=== PATIENT | female | born 1950 | race African-American/Black ===

== ENCOUNTER 2016-08-30 18:16 | Emergency (ER) | payer MEDICARE ==
[~2016-08-30] VITALS: Ht 167.6 cm; Wt 95.0 kg
[~2016-08-30 18:16] MED LIST: ALLO100T; AMLO2.5T45 PO; HYDR12.518; WARF1TAB46
[2016-08-30 18:28] VITALS: BP 124/72
== END 2016-08-30 19:45 | disposition left against medical advice (07) ==
LOC: ER 18:16
DX: J45.909 Unspecified asthma, uncomplicated (principal); Z53.21 Procedure and treatment not carried out due to patient leaving prior to being seen by health care provider

== ENCOUNTER 2017-06-16 06:21 | Emergency (ER) | payer MEDICARE, OTHER ==
[~2017-06-16] VITALS: Ht 167.6 cm; Wt 94.0 kg
[2017-06-16] MEDS ORDERED: ALBUTEROL (0.083%) 2.5MG/3ML NEB HHN STA (06:55)
[2017-06-16] MEDS ORDERED: PREDNISONE 20MG TABLET PO STA (06:55)
[2017-06-16] MEDS ORDERED: IPRATROPIUM BROMIDE (0.02%) 0.5MG/2.5ML NEB HHN STA (06:55)
[2017-06-16 09:56] VITALS: BP 112/82
== END 2017-06-16 09:52 | disposition home or self-care (01) ==
LOC: ER 07:28
DX: J45.901 Unspecified asthma with (acute) exacerbation (principal); I10 Essential (primary) hypertension; Z79.01 Long term (current) use of anticoagulants
CPT/HCPCS: 71045; 94640; 99283; J7512; J7611

== ENCOUNTER 2017-07-08 06:25 | Inpatient (IN) | payer OTHER ==
[~2017-07-08] VITALS: Ht 167.6 cm; Wt 95.3 kg
[2017-07-08] MEDS ORDERED: ALBUTEROL (0.083%) 2.5MG/3ML NEB HHN STA ×2 (07:57→10:10)
[2017-07-08] MEDS ORDERED: IPRATROPIUM BROMIDE (0.02%) 0.5MG/2.5ML NEB HHN STA (07:57)
[2017-07-08] MEDS ORDERED: PREDNISONE 20MG TABLET PO STA (07:57)
[2017-07-08 08:40] LABS: BASOPHILS % 0.5 % (0.0-2.0); EOSINOPHILS % 9.7 % (0.0-5.0); HEMATOCRIT. 34.9 % (36.0-48.0); HEMOGLOBIN. 11.1 g/dL (12.0-16.0); LYMPHOCYTES % 42.2 % (20.0-50.0); MEAN CORPUSCULAR VOLUME 75.6 fL (81.0-99.0); MEAN PLATELET VOLUME 7.8 fl (7.4-10.4); MONOCYTES % 12.9 % (2.0-8.0); NEUTROPHILS % 34.7 % (40.0-76.0); PLATELET 130 x1000/uL (130-400); RED BLOOD CELL COUNT 4.61 mill/uL (4.2-5.4); RED CELL DISTRIBUTION WIDTH 16.1 % (11.6-14.6)
[2017-07-08] MEDS ORDERED: ALBUTEROL (0.5%) 2.5MG/0.5ML NEB HHN ONE (08:40)
[2017-07-08 08:43] LABS: CHLORIDE 106 mEq/L (98-107)
[2017-07-08 08:50] LABS: INR 3.7; PROTHROMBIN TIME 38.8 sec (9.4-11.6)
[2017-07-08 11:52] VITALS: BP 107/67
[2017-07-08 12:00] VITALS: BP 107/67
[2017-07-08] MEDS ORDERED: KDUR10 PO (12:03)
[2017-07-08] MEDS ORDERED: ALLO100T PO (12:03)
[2017-07-08] MEDS ORDERED: HYDR12.529 PO (12:03)
[2017-07-08] MEDS ORDERED: WARF7.5T48 PO (12:03)
[2017-07-08] MEDS ORDERED: AMLO2.5T45 PO (12:03)
[2017-07-08] MEDS ORDERED: ONDANSETRON HCL 4MG/2ML VIAL IV PRN (12:45)
[2017-07-08] MEDS ORDERED: TRAMADOL 50MG TABLET PO PRN (12:45)
[2017-07-08] MEDS ORDERED: MORPHINE SULFATE 4 MG/ML CPJ (NOT FOR IM USE) IV PRN (12:45)
[2017-07-08] MEDS ORDERED: NITROGLYCERIN 0.4MG TABLET SL SL PRN (12:45)
[2017-07-08] MEDS ORDERED: LORAZEPAM 0.5MG TABLET PO PRN (12:45)
[2017-07-08] MEDS ORDERED: DOCUSATE SODIUM 100MG CAPSULE PO PRN (12:45)
[2017-07-08] MEDS ORDERED: DIPHENHYDRAMINE 50MG/ML VIAL IV PRN (12:45)
[2017-07-08] MEDS ORDERED: ACETAMINOPHEN 325MG TABLET PO PRN (12:45)
[2017-07-08] MEDS ORDERED: GUAIFENESIN 200MG/10ML SUGAR FREE UDC PO PRN (12:45)
[2017-07-08] MEDS ORDERED: NA PHOS,M-B/NA PHOS,DI-BA ENEMA 118ML PR PRN (12:45)
[2017-07-08] MEDS ORDERED: MAGNESIUM/ALUMINUM HYDROXIDE/SIMETHICONE 30ML UDC PO PRN (12:45)
[2017-07-08] MEDS ORDERED: CLONIDINE 0.1MG TABLET PO PRN (12:45)
[2017-07-08] MEDS: AMLODIPINE 10MG TABLET PO SCH (13:00)
[2017-07-08] MEDS ORDERED: LEVOFLOXACIN 500MG PREMIX 100 ML IV SCH ×2 (14:00→21:00)
[2017-07-08] MEDS: METHYLPREDNISOLONE SOD SUCC 125 MG/2 ML VIAL IV SCH ×2 (15:14→22:30)
[2017-07-08 16:00] VITALS: BP 96/54
[2017-07-08 18:03] LABS: LDL CHOLESTEROL 113 mg/dL (5-100)
[2017-07-08 18:04] LABS: HDL CHOLESTEROL 70 mg/dL (40-59)
[2017-07-08 18:05] LABS: CREATINE KINASE 190 IU/L (26-192)
[2017-07-08 18:06] LABS: CREATINE KINASE MB FRACTION 2.2 ng/mL (0.5-3.6)
[2017-07-08 18:13] LABS: FOLIC ACID (FOLATE) SERUM 19.4 ng/mL (>5.38)
[2017-07-08] MEDS: FAMOTIDINE 20MG TABLET PO SCH (21:04)
[2017-07-08] MEDS: GUAIFENESIN 600MG ER TABLET PO SCH (21:04)
[2017-07-08] MEDS: IPRATROPIUM/ALBUTEROL 0.5-3(2.5)MG/3ML NEB INH PRN (21:41)
[2017-07-08] MEDS: ZOLPIDEM TARTRATE 5MG TABLET PO PRN (22:30)
[2017-07-09] VITALS: BP 120/80
[2017-07-09 00:23] LABS: CREATINE KINASE 174 IU/L (26-192)
[2017-07-09 00:28] LABS: CREATINE KINASE MB FRACTION 2.2 ng/mL (0.5-3.6)
[2017-07-09 06:04] LABS: INR 3.2
[2017-07-09] MEDS: IPRATROPIUM/ALBUTEROL 0.5-3(2.5)MG/3ML NEB INH PRN (06:55)
[2017-07-09] MEDS: METHYLPREDNISOLONE SOD SUCC 125 MG/2 ML VIAL IV SCH (06:57)
[2017-07-09 08:00] VITALS: BP 126/77
[2017-07-09] MEDS: GUAIFENESIN 600MG ER TABLET PO SCH ×2 (09:12→22:40)
[2017-07-09] MEDS: AMLODIPINE 10MG TABLET PO SCH (09:14)
[2017-07-09 12:00] VITALS: BP 130/82
[2017-07-09] MEDS: FAMOTIDINE 20MG TABLET PO SCH (12:39)
[2017-07-09 16:00] VITALS: BP 128/79
[2017-07-09] MEDS ORDERED: BUDESONIDE 0.5MG/2ML NEB HHN SCH (16:00)
[2017-07-09] MEDS ORDERED: WARFARIN SODIUM 5MG TABLET PO SCH (18:00)
[2017-07-09 20:00] VITALS: BP 117/68
[2017-07-09] MEDS: FAMOTIDINE 20MG/2ML VIAL IV SCH (22:40)
[2017-07-09 23:48] LABS: CLARITY URINE CLEAR (CLEAR); COLOR URINE YELLOW (YELLOW); KETONES URINE NEGATIVE (NEGATIVE); LEUKOCYTE ESTERASE URINE NEGATIVE (NEGATIVE); NITRITE URINE NEGATIVE (NEGATIVE); OCCULT BLOOD URINE NEGATIVE (NEGATIVE); PH URINE 6.5 (4.5-8.0); PROTEIN URINE NEGATIVE (NEGATIVE); SPECIFIC GRAVITY URINE 1.016 (1.005-1.030); UROBILINOGEN URINE 0.2 E.U./dL (0.2-1.0)
[2017-07-10] VITALS: BP 110/76
[2017-07-10 00:25] LABS: *AMPHETAMINES SCREEN URINE NEGATIVE (NEGATIVE); *BARBITURATES SCREEN URINE NEGATIVE (NEGATIVE); *BENZODIAZEPINES SCREEN URINE PRESUMTIVE POSITIVE (NEGATIVE); *COCAINE SCREEN URINE NEGATIVE (NEGATIVE); METHADONE URINE SCREEN NEGATIVE (NEGATIVE); OPIATES URINE SCREEN NEGATIVE (NEGATIVE); PHENCYCLIDINE URINE SCREEN NEGATIVE (NEGATIVE)
[2017-07-10 00:26] LABS: CANNABINOID URINE SCREEN NEGATIVE (NEGATIVE)
[2017-07-10] MEDS: ZOLPIDEM TARTRATE 5MG TABLET PO PRN (01:44)
[2017-07-10 07:18] LABS: INR 2.3; PROTHROMBIN TIME 23.7 sec (9.4-11.6)
[2017-07-10 07:30] VITALS: BP 98/64
[2017-07-10] MEDS: AMLODIPINE 10MG TABLET PO SCH (08:30)
[2017-07-10] MEDS: FAMOTIDINE 20MG/2ML VIAL IV SCH (08:30)
[2017-07-10] MEDS: GUAIFENESIN 600MG ER TABLET PO SCH (08:31)
[2017-07-10 09:12] VITALS: BP 119/88
== END 2017-07-10 10:05 | disposition home or self-care (01) | DRG 871 ==
LOC: ER 06:25 → 5WST 10:29 → EDBEDREQ 10:30 → ENRESERV 10:41
PROVIDERS: ADMIT Internal Medicine; ATTEND Internal Medicine
DX: A41.9 Sepsis, unspecified organism (principal); J96.00 Acute respiratory failure, unspecified whether with hypoxia or hypercapnia; J44.1 Chronic obstructive pulmonary disease with (acute) exacerbation; D68.9 Coagulation defect, unspecified; J45.901 Unspecified asthma with (acute) exacerbation; K21.9 Gastro-esophageal reflux disease without esophagitis; D64.9 Anemia, unspecified; M19.90 Unspecified osteoarthritis, unspecified site; Z60.2 Problems related to living alone; I10 Essential (primary) hypertension; Z86.711 Personal history of pulmonary embolism; Z79.01 Long term (current) use of anticoagulants; Z79.899 Other long term (current) drug therapy; Z87.891 Personal history of nicotine dependence; Z82.49 Family history of ischemic heart disease and other diseases of the circulatory system
CPT/HCPCS: 36415; 71045; 80053; 80061; 80305; 81003; 82550; 82553; 82607; 82746; 83036; 84484; 85025; 85610; 93970; 94640; 99285; J1956; J2930; J3490; J7050; J7512; J7611; J7620

== ENCOUNTER 2018-03-01 07:32 | Inpatient (IN) | payer OTHER ==
[~2018-03-01] VITALS: Ht 167.6 cm; Wt 95.3 kg
[~2018-03-01 07:32] MED LIST changes: -ALLO100T; +ALLO100T PO; -HYDR12.518; +HYDR12.529 PO; +KDUR10 PO; -WARF1TAB46; +WARF7.5T48 PO
[2018-03-01] MEDS ORDERED: METHYLPREDNISOLONE SOD SUCC 125 MG/2 ML VIAL IV STA (08:44)
[2018-03-01] MEDS ORDERED: LEVOFLOXACIN 750MG PREMIX 150 ML IV ONE (08:45)
[2018-03-01] MEDS ORDERED: IPRATROPIUM/ALBUTEROL 0.5-3(2.5)MG/3ML NEB HHN ONE (08:45)
[2018-03-01] MEDS ORDERED: MAGNESIUM 2 G PREMIX 50 ML IV ONE (08:45)
[2018-03-01 08:58] LABS: BASOPHILS % 0.3 % (0.0-2.0); EOSINOPHILS % 6.7 % (0.0-5.0); HEMATOCRIT. 37.9 % (36.0-48.0); LYMPHOCYTES % 32.9 % (20.0-50.0); MEAN CORPUSCULAR HEMOGLOBIN 24.1 pg (28.0-32.0); MEAN CORPUSCULAR VOLUME 76.2 fL (81.0-99.0); MEAN PLATELET VOLUME 8.6 fl (7.4-10.4); MONOCYTES % 11.6 % (2.0-8.0); NEUTROPHILS % 48.5 % (40.0-76.0); PLATELET 137 x1000/uL (130-400); RED BLOOD CELL COUNT 4.97 mill/uL (4.2-5.4); RED CELL DISTRIBUTION WIDTH 14.9 % (11.6-14.6)
[2018-03-01 09:05] LABS: CHLORIDE 105 mEq/L (98-107)
[2018-03-01 09:08] LABS: ETHANOL BLOOD < 10 mg/dL
[2018-03-01 09:09] LABS: INR 2.9; PARTIAL THROMBOPLASTIN TIME 51.1 sec (23.4-31.0); PROTHROMBIN TIME 28.9 sec (9.1-11.1)
[2018-03-01] MEDS ORDERED: POTASSIUM CHLORIDE 20MEQ TABLET SR PO ONE (13:00)
[2018-03-01] MEDS ORDERED: ACETAMINOPHEN 650MG SUPP PR PRN (14:30)
[2018-03-01] MEDS ORDERED: ONDANSETRON HCL 4MG/2ML INJ IV PRN (14:30)
[2018-03-01] MEDS ORDERED: ACETAMINOPHEN 325MG TABLET PO PRN (14:30)
[2018-03-01] MEDS ORDERED: HYDROCODONE/ACETAMINOPHEN 5/325MG TABLET PO PRN (14:30)
[2018-03-01] MEDS ORDERED: GUAIFENESIN 200MG/10ML SUGAR FREE UDC PO PRN (14:30)
[2018-03-01] MEDS ORDERED: IPRATROPIUM/ALBUTEROL 0.5-3(2.5)MG/3ML NEB INH PRN (14:30)
[2018-03-01] MEDS ORDERED: LORAZEPAM 0.5MG TABLET PO PRN (14:30)
[2018-03-01] MEDS ORDERED: CLONIDINE 0.1MG TABLET PO PRN (14:30)
[2018-03-01] MEDS ORDERED: LEVOFLOXACIN 500MG PREMIX 100 ML IV SCH (14:30)
[2018-03-01] MEDS ORDERED: MAGNESIUM/ALUMINUM HYDROXIDE/SIMETHICONE 30ML UDC PO PRN (14:30)
[2018-03-01] MEDS ORDERED: DOCUSATE SODIUM 100MG CAPSULE PO PRN (14:30)
[2018-03-01] MEDS ORDERED: DIPHENHYDRAMINE 50MG/ML VIAL IV PRN (14:30)
[2018-03-01 16:04] LABS: CLARITY URINE CLEAR (CLEAR); COLOR URINE YELLOW (YELLOW); KETONES URINE NEGATIVE (NEGATIVE); LEUKOCYTE ESTERASE URINE NEGATIVE (NEGATIVE); NITRITE URINE NEGATIVE (NEGATIVE); OCCULT BLOOD URINE NEGATIVE (NEGATIVE); PH URINE 5.5 (4.5-8.0); PROTEIN URINE NEGATIVE (NEGATIVE); SPECIFIC GRAVITY URINE 1.012 (1.005-1.030); UROBILINOGEN URINE 0.2 E.U./dL (0.2-1.0)
[2018-03-01 16:58] LABS: *AMPHETAMINES SCREEN URINE NEGATIVE (NEGATIVE); *BARBITURATES SCREEN URINE NEGATIVE (NEGATIVE); *BENZODIAZEPINES SCREEN URINE NEGATIVE (NEGATIVE); *COCAINE SCREEN URINE NEGATIVE (NEGATIVE); METHADONE URINE SCREEN NEGATIVE (NEGATIVE)
[2018-03-01 16:59] LABS: CANNABINOID URINE SCREEN NEGATIVE (NEGATIVE); OPIATES URINE SCREEN PRESUMTIVE POSITIVE (NEGATIVE); PHENCYCLIDINE URINE SCREEN NEGATIVE (NEGATIVE)
[2018-03-01] MEDS ORDERED: NA PHOS,M-B/NA PHOS,DI-BA ENEMA 118ML PR PRN (21:00)
[2018-03-01 22:30] VITALS: BP 141/85
[2018-03-01 22:58] VITALS: BP 141/85
[2018-03-01] MEDS ORDERED: IOHEXOL-350 100 ML BOTTLE ONE (23:10)
[2018-03-01] MEDS: METHYLPREDNISOLONE SOD SUCC 40 MG/ML VIAL IV SCH (23:15)
[2018-03-01] MEDS ORDERED: WARFARIN SODIUM 7.5MG TABLET PO SCH (23:30)
[2018-03-02] MEDS: IPRATROPIUM/ALBUTEROL 0.5-3(2.5)MG/3ML NEB HHN SCH ×3 (00:43→08:00)
[2018-03-02 04:00] VITALS: BP 97/55
[2018-03-02] MEDS: METHYLPREDNISOLONE SOD SUCC 40 MG/ML VIAL IV SCH ×2 (06:12→14:20)
[2018-03-02 06:53] LABS: BASOPHILS % 0.1 % (0.0-2.0); HEMATOCRIT. 36.2 % (36.0-48.0); HEMOGLOBIN. 11.5 g/dL (12.0-16.0); LYMPHOCYTES % 14.5 % (20.0-50.0); MEAN CORPUSCULAR VOLUME 75.6 fL (81.0-99.0); MEAN PLATELET VOLUME 9.2 fl (7.4-10.4); MONOCYTES % 3.3 % (2.0-8.0); NEUTROPHILS % 82.1 % (40.0-76.0); PLATELET 142 x1000/uL (130-400); RED BLOOD CELL COUNT 4.78 mill/uL (4.2-5.4); RED CELL DISTRIBUTION WIDTH 14.9 % (11.6-14.6)
[2018-03-02 06:56] LABS: INR 3.3; PROTHROMBIN TIME 32.4 sec (9.1-11.1)
[2018-03-02 08:00] VITALS: BP 93/47
[2018-03-02] MEDS ORDERED: AMLODIPINE 2.5MG TABLET PO SCH (09:00)
[2018-03-02] MEDS ORDERED: FAMOTIDINE 20MG/2ML VIAL IV SCH (09:00)
[2018-03-02] MEDS ORDERED: ALLOPURINOL 100 MG TABLET PO SCH (09:00)
[2018-03-02] MEDS ORDERED: LORATADINE 10MG TABLET PO SCH (09:00)
[2018-03-02] MEDS ORDERED: GABAPENTIN 100MG CAPSULE PO SCH (09:00)
[2018-03-02] MEDS ORDERED: HYDROCHLOROTHIAZIDE 12.5MG CAPSULE PO SCH (09:00)
[2018-03-02] MEDS ORDERED: LEVOFLOXACIN 500MG PREMIX 100 ML IV SCH (10:00)
[2018-03-02 12:00] VITALS: BP 108/69
[2018-03-02 12:21] LABS: CHLORIDE 106 mEq/L (98-107)
[2018-03-02 12:31] LABS: LDL CHOLESTEROL 139 mg/dL (5-100)
[2018-03-02 12:32] LABS: T4 FREE 0.81 ng/dL (0.76-1.46)
[2018-03-02 12:33] LABS: HDL CHOLESTEROL 65 mg/dL (40-59)
[2018-03-02 16:22] VITALS: BP 108/69
[2018-03-02] MEDS ORDERED: MONTELUKAST SODIUM 10MG TABLET PO SCH (17:00)
[2018-03-02] MEDS ORDERED: WARFARIN SODIUM 7.5MG TABLET PO SCH (18:00)
== END 2018-03-02 17:55 | disposition home or self-care (01) | DRG 202 ==
LOC: ER 08:37 → EDBEDREQ 08:52 → 7WST 13:30 → EDBEDREQ 13:33 → ENRESERV 15:30 → SUPCPDRO 18:02
PROVIDERS: ADMIT Ophthalmology; ATTEND Ophthalmology
DX: J45.901 Unspecified asthma with (acute) exacerbation (principal); J18.9 Pneumonia, unspecified organism; D68.9 Coagulation defect, unspecified; D68.59 Other primary thrombophilia; E66.9 Obesity, unspecified; E78.5 Hyperlipidemia, unspecified; M48.02 Spinal stenosis, cervical region; E87.6 Hypokalemia; M10.9 Gout, unspecified; I10 Essential (primary) hypertension; K11.20 Sialoadenitis, unspecified; Z86.711 Personal history of pulmonary embolism; Z79.01 Long term (current) use of anticoagulants; Z79.899 Other long term (current) drug therapy; Z68.33 Body mass index [BMI] 33.0-33.9, adult
CPT/HCPCS: 36415; 71045; 71275; 80061; 80305; 83605; 83880; 84439; 84443; 84484; 84550; 87804; 93005; 93970; 94640; 96365; 96367; 96375; 99285; G0482; J1200; J1956; J2920; J2930; J3475; J3490; J7050; J7620; Q9967

== ENCOUNTER 2018-06-03 06:48 | Emergency (ER) | payer OTHER ==
[~2018-06-03] VITALS: Ht 167.6 cm; Wt 90.8 kg
[2018-06-03 06:56] VITALS: BP 128/83
== END 2018-06-03 12:42 | disposition left against medical advice (07) ==
LOC: ER 06:48
DX: R06.02 Shortness of breath (principal); Z53.21 Procedure and treatment not carried out due to patient leaving prior to being seen by health care provider

== ENCOUNTER 2018-06-03 20:46 | Emergency (ER) | payer OTHER ==
[~2018-06-03] VITALS: Ht 170.2 cm; Wt 100.0 kg
[2018-06-03] MEDS ORDERED: METHYLPREDNISOLONE SOD SUCC 125 MG/2 ML VIAL IV STA (21:57)
[2018-06-03] MEDS ORDERED: IPRATROPIUM BROMIDE (0.02%) 0.5MG/2.5ML NEB HHN STA (21:57)
[2018-06-03] MEDS ORDERED: ALBUTEROL (0.083%) 2.5MG/3ML NEB HHN STA (21:57)
[2018-06-03] MEDS ORDERED: MAGNESIUM 2 G PREMIX 50 ML IV ONE (22:00)
[2018-06-03 22:45] LABS: BASOPHILS % 0.3 % (0.0-2.0); EOSINOPHILS % 6.6 % (0.0-5.0); HEMATOCRIT. 36.4 % (36.0-48.0); HEMOGLOBIN. 11.4 g/dL (12.0-16.0); LYMPHOCYTES % 45.4 % (20.0-50.0); MEAN CORPUSCULAR VOLUME 76.8 fL (81.0-99.0); MEAN PLATELET VOLUME 8.4 fl (7.4-10.4); MONOCYTES % 10.9 % (2.0-8.0); NEUTROPHILS % 36.8 % (40.0-76.0); PLATELET 124 x1000/uL (130-400); RED BLOOD CELL COUNT 4.74 mill/uL (4.2-5.4); RED CELL DISTRIBUTION WIDTH 14.9 % (11.6-14.6)
[2018-06-03 22:48] LABS: CHLORIDE 110 mEq/L (98-107)
[2018-06-03 22:53] LABS: INR 1.6; PARTIAL THROMBOPLASTIN TIME 35.1 sec (23.4-31.0); PROTHROMBIN TIME 16.4 sec (9.1-11.1)
[2018-06-04 00:59] VITALS: BP 128/76
== END 2018-06-04 01:01 | disposition home or self-care (01) ==
LOC: ER 20:46
DX: J45.901 Unspecified asthma with (acute) exacerbation (principal); Z86.718 Personal history of other venous thrombosis and embolism; Z79.01 Long term (current) use of anticoagulants
CPT/HCPCS: 36415; 71045; 80053; 83880; 84484; 85025; 85610; 85730; 93005; 94640; 96365; 96375; 99284; J2930; J3475; J7611

== ENCOUNTER 2018-07-06 10:30 | Emergency (ER) | payer OTHER ==
[~2018-07-06] VITALS: Ht 167.6 cm; Wt 95.0 kg
[2018-07-06 11:48] VITALS: BP 123/80
[2018-07-06] MEDS ORDERED: PREDNISONE 20MG TABLET PO STA (12:26)
[2018-07-06] MEDS ORDERED: ALBUTEROL (0.083%) 2.5MG/3ML NEB HHN STA (12:26)
[2018-07-06] MEDS ORDERED: IPRATROPIUM BROMIDE (0.02%) 0.5MG/2.5ML NEB HHN STA (12:26)
[2018-07-06 13:33] LABS: BASOPHILS % 0.7 % (0.0-2.0); EOSINOPHILS % 8.1 % (0.0-5.0); HEMATOCRIT. 35.8 % (36.0-48.0); HEMOGLOBIN. 11.2 g/dL (12.0-16.0); LYMPHOCYTES % 48.5 % (20.0-50.0); MEAN CORPUSCULAR VOLUME 76.9 fL (81.0-99.0); MONOCYTES % 11.3 % (2.0-8.0); NEUTROPHILS % 31.4 % (40.0-76.0); PLATELET 107 x1000/uL (130-400); RED BLOOD CELL COUNT 4.65 mill/uL (4.2-5.4); RED CELL DISTRIBUTION WIDTH 15.6 % (11.6-14.6)
[2018-07-06 13:39] LABS: CHLORIDE 109 mEq/L (98-107)
[2018-07-06] MEDS ORDERED: POTASSIUM CHLORIDE 20MEQ TABLET SR PO ONE (14:00)
== END 2018-07-06 14:28 | disposition home or self-care (01) ==
LOC: ER 10:48
DX: J45.901 Unspecified asthma with (acute) exacerbation (principal); Z79.899 Other long term (current) drug therapy
CPT/HCPCS: 36415; 71045; 80053; 83880; 84484; 85025; 94640; 99284; J7512; J7611

== ENCOUNTER 2019-03-20 06:04 | Emergency (ER) | payer OTHER ==
[~2019-03-20] VITALS: Ht 167.6 cm; Wt 96.0 kg
[2019-03-20] MEDS ORDERED: IPRATROPIUM BROMIDE (0.02%) 0.5MG/2.5ML NEB HHN STA (06:23)
[2019-03-20] MEDS ORDERED: METHYLPREDNISOLONE SOD SUCC 125 MG/2 ML VIAL IV STA (06:23)
[2019-03-20] MEDS ORDERED: ALBUTEROL (0.083%) 2.5MG/3ML NEB HHN STA ×2 (06:23→08:54)
[2019-03-20 06:46] LABS: BASOPHILS % 0.6 % (0.0-2.0); EOSINOPHILS % 9.6 % (0.0-5.0); HEMATOCRIT. 35.9 % (36.0-48.0); HEMOGLOBIN. 11.3 g/dL (12.0-16.0); LYMPHOCYTES % 35.5 % (20.0-50.0); MEAN CORPUSCULAR HEMOGLOBIN 24.4 pg (28.0-32.0); MEAN CORPUSCULAR VOLUME 77.7 fL (81.0-99.0); MEAN PLATELET VOLUME 8.1 fl (7.4-10.4); MONOCYTES % 9.4 % (2.0-8.0); NEUTROPHILS % 44.9 % (40.0-76.0); PLATELET 131 x1000/uL (130-400); RED BLOOD CELL COUNT 4.62 mill/uL (4.2-5.4); RED CELL DISTRIBUTION WIDTH 16.8 % (11.6-14.6)
[2019-03-20 06:50] LABS: CHLORIDE 105 mEq/L (98-107)
[2019-03-20 06:54] LABS: INR 1.2; PROTHROMBIN TIME 12.4 sec (9.6-11.0)
[2019-03-20 10:20] VITALS: BP 115/76
== END 2019-03-20 11:51 | disposition home or self-care (01) ==
LOC: ER 06:04 → CANBEDREQ 16:02
DX: J44.1 Chronic obstructive pulmonary disease with (acute) exacerbation (principal); R06.03 Acute respiratory distress; J45.909 Unspecified asthma, uncomplicated; I10 Essential (primary) hypertension; Z79.899 Other long term (current) drug therapy; Z79.01 Long term (current) use of anticoagulants
CPT/HCPCS: 36415; 71045; 80053; 84484; 85025; 85610; 93005; 93970; 94640; 96374; 99284; J2930; J7611

== ENCOUNTER 2019-04-08 17:21 | Inpatient (IN) | payer OTHER ==
[~2019-04-08] VITALS: Ht 167.6 cm; Wt 90.7 kg
[2019-04-08] MEDS ORDERED: ALBUTEROL (0.083%) 2.5MG/3ML NEB HHN STA ×2 (18:49→21:34)
[2019-04-08] MEDS ORDERED: PREDNISONE 20MG TABLET PO STA (18:49)
[2019-04-08] MEDS ORDERED: IPRATROPIUM BROMIDE (0.02%) 0.5MG/2.5ML NEB HHN STA (18:49)
[2019-04-08] MEDS: IPRATROPIUM BROMIDE (0.02%) 0.5MG/2.5ML NEB HHN NR ×5 (20:07→22:38)
[2019-04-08] MEDS ORDERED: IPRATROPIUM BROMIDE (0.02%) 0.5MG/2.5ML NEB ONE (20:13)
[2019-04-08] MEDS ORDERED: METHYLPREDNISOLONE SOD SUCC 40 MG/ML VIAL IV ONE (21:45)
[2019-04-08 23:14] LABS: BASOPHILS % 0.3 % (0.0-2.0); EOSINOPHILS % 0.4 % (0.0-5.0); HEMATOCRIT. 35.1 % (36.0-48.0); LYMPHOCYTES % 15.4 % (20.0-50.0); MEAN CORPUSCULAR HEMOGLOBIN 24.2 pg (28.0-32.0); MEAN CORPUSCULAR VOLUME 77.3 fL (81.0-99.0); MEAN PLATELET VOLUME 8.6 fl (7.4-10.4); MONOCYTES % 2.6 % (2.0-8.0); NEUTROPHILS % 81.3 % (40.0-76.0); PLATELET 122 x1000/uL (130-400); RED BLOOD CELL COUNT 4.54 mill/uL (4.2-5.4); RED CELL DISTRIBUTION WIDTH 15.6 % (11.6-14.6)
[2019-04-08 23:17] LABS: CHLORIDE 105 mEq/L (98-107)
[2019-04-09 04:07] VITALS: BP 132/73
[2019-04-09 04:11] VITALS: BP 132/73
[2019-04-09] MEDS ORDERED: IPRATROPIUM/ALBUTEROL 0.5-3(2.5)MG/3ML NEB HHN PRN (04:15)
[2019-04-09] MEDS ORDERED: DIPHENHYDRAMINE 50MG CAPSULE PO ONE (04:15)
[2019-04-09] MEDS ORDERED: ACETAMINOPHEN 650MG/20.3ML UDC GT PRN (04:15)
[2019-04-09] MEDS ORDERED: GUAIFENESIN 200MG/10ML SUGAR FREE UDC PO PRN (04:15)
[2019-04-09] MEDS ORDERED: IPRATROPIUM/ALBUTEROL 0.5-3(2.5)MG/3ML NEB HHN SCH (04:15)
[2019-04-09] MEDS ORDERED: SODIUM CHLORIDE 0.9% INJ 3ML FLUSH IVF SCH (06:00)
[2019-04-09] MEDS ORDERED: DIPHENHYDRAMINE 50MG CAPSULE PO SCH (06:15)
[2019-04-09] MEDS ORDERED: PANTOPRAZOLE 40MG DR TABLET PO SCH (07:40)
[2019-04-09 08:00] VITALS: BP 117/76
[2019-04-09] MEDS: IPRATROPIUM/ALBUTEROL 0.5-3(2.5)MG/3ML NEB HHN SCH ×2 (08:02→11:21)
[2019-04-09] MEDS ORDERED: PREDNISONE 20MG TABLET PO SCH (08:10)
[2019-04-09] MEDS ORDERED: AMLODIPINE 2.5MG TABLET PO SCH (09:00)
[2019-04-09] MEDS ORDERED: HYDROCHLOROTHIAZIDE 12.5MG CAPSULE PO SCH (09:00)
[2019-04-09] MEDS ORDERED: POTASSIUM CHLORIDE 10MEQ TABLET SR PO SCH (09:00)
[2019-04-09] MEDS ORDERED: WARFARIN SODIUM 7.5MG TABLET PO SCH (09:00)
[2019-04-09] MEDS ORDERED: ALLOPURINOL 100 MG TABLET PO SCH (09:00)
[2019-04-09 09:28] LABS: BASOPHILS % 0.1 % (0.0-2.0); HEMATOCRIT. 36.1 % (36.0-48.0); HEMOGLOBIN. 11.4 g/dL (12.0-16.0); LYMPHOCYTES % 13.4 % (20.0-50.0); MEAN CORPUSCULAR HEMOGLOBIN 24.5 pg (28.0-32.0); MEAN CORPUSCULAR VOLUME 77.8 fL (81.0-99.0); MEAN PLATELET VOLUME 8.2 fl (7.4-10.4); MONOCYTES % 1.7 % (2.0-8.0); NEUTROPHILS % 84.8 % (40.0-76.0); PLATELET 129 x1000/uL (130-400); RED BLOOD CELL COUNT 4.64 mill/uL (4.2-5.4); RED CELL DISTRIBUTION WIDTH 15.9 % (11.6-14.6)
[2019-04-09 09:39] LABS: CHLORIDE 106 mEq/L (98-107)
[2019-04-09 09:44] LABS: INR 1.8; PROTHROMBIN TIME 17.8 sec (9.6-11.0)
[2019-04-09] MEDS ORDERED: LEVOFLOXACIN 500MG TABLET PO SCH (11:00)
[2019-04-09 12:00] VITALS: BP 134/86
[2019-04-09 12:48] VITALS: BP 134/86
[2019-04-09] MEDS ORDERED: ONDANSETRON HCL 4MG/2ML INJ IV NR (13:30)
[2019-04-09] MEDS ORDERED: WARFARIN SODIUM 5MG TABLET PO NR (18:00)
== END 2019-04-09 14:05 | disposition home or self-care (01) | DRG 203 ==
LOC: ER 17:21 → 7WST 04-09 00:01 → EDBEDREQTM 04-09 00:08 → EDBEDREQDT 04-09 00:08 → EDBEDREQ 04-09 00:08 → ENRESERV 04-09 02:19
PROVIDERS: ADMIT Ophthalmology; ATTEND Ophthalmology
DX: J45.901 Unspecified asthma with (acute) exacerbation (principal); D69.6 Thrombocytopenia, unspecified; I10 Essential (primary) hypertension; R79.1 Abnormal coagulation profile; Z86.718 Personal history of other venous thrombosis and embolism; Z79.01 Long term (current) use of anticoagulants; Z79.899 Other long term (current) drug therapy
CPT/HCPCS: 36415; 71045; 80048; 80053; 83880; 84484; 85025; 87070; 87804; 93005; 96374; 99285; J2405; J2920; J7512; J7611; J7620

== ENCOUNTER 2021-06-29 01:12 | Emergency (ER) | payer OTHER ==
[~2021-06-29] VITALS: Ht 165.1 cm; Wt 100.0 kg
[~2021-06-29 01:12] MED LIST changes: -KDUR10 PO; +POTA-189 PO
[2021-06-29] MEDS ORDERED: SODIUM CHLORIDE 0.9% 1,000 ML IV ONE (01:30)
[2021-06-29 02:14] LABS: BASOPHILS % 0.4 % (0.0-2.0); EOSINOPHILS % 1.4 % (0.0-5.0); HEMOGLOBIN. 11.2 g/dL (12.0-16.0); MEAN CORPUSCULAR HEMOGLOBIN 24.3 pg (28.0-32.0); MEAN CORPUSCULAR VOLUME 76.1 fL (81.0-99.0); MEAN PLATELET VOLUME 8.2 fl (7.4-10.4); MONOCYTES % 11.6 % (2.0-8.0); NEUTROPHILS % 61.6 % (40.0-76.0); PLATELET 154 x1000/uL (130-400); RED CELL DISTRIBUTION WIDTH 15.1 % (11.6-14.6)
[2021-06-29 02:26] LABS: CHLORIDE 106 mEq/L (98-107)
[2021-06-29 02:27] LABS: INR 2.4; PROTHROMBIN TIME 24.2 sec (9.6-11.0)
[2021-06-29 02:36] LABS: CREATINE KINASE 240 IU/L (26-192)
[2021-06-29] MEDS ORDERED: POTASSIUM CHLORIDE 20MEQ TABLET SR PO NR (03:15)
[2021-06-29 03:33] VITALS: BP 124/71
== END 2021-06-29 03:35 | disposition home or self-care (01) ==
LOC: ER 01:12
DX: M79.10 Myalgia, unspecified site (principal); R25.2 Cramp and spasm; E87.6 Hypokalemia; D68.8 Other specified coagulation defects; I10 Essential (primary) hypertension; J45.909 Unspecified asthma, uncomplicated; Z86.711 Personal history of pulmonary embolism; Z86.718 Personal history of other venous thrombosis and embolism; Z79.01 Long term (current) use of anticoagulants
CPT/HCPCS: 36415; 71045; 80053; 82550; 83880; 84484; 85025; 85610; 96360; 99284; J7030

== ENCOUNTER 2024-01-03 07:08 | Emergency (ER) | payer OTHER ==
[~2024-01-03] VITALS: Ht 162.6 cm; Wt 94.0 kg
[~2024-01-03 07:08] MED LIST changes: +ALBUTEROL; +AMLOPIDINE; +HYDROCHLOROTHIAZIDE; +NIRM1TAB PO; +NITR-87 MT; +T3 PO; +WARF7.5T22
[2024-01-03 07:11] VITALS: O2SAT 99
[2024-01-03] MEDS: ACETAMINOPHEN 500MG TABLET PO ONE (07:52)
[2024-01-03] MEDS: LIDOCAINE 5% PATCH TOP SCH (07:54)
[2024-01-03] MEDS ORDERED: DEXAMETHASONE 1MG TABLET PO ONE (08:15)
[2024-01-03] MEDS ORDERED: KETOROLAC 15MG/ML VIAL IM ONE (08:15)
[2024-01-03] MEDS ORDERED: DEXAMETHASONE 10 MG/ML VIAL IM ONE (08:15)
[2024-01-03] MEDS ORDERED: KETOROLAC 30MG/ML VIAL IM ONE ×2 (08:15)
[2024-01-03] MEDS: KETOROLAC 15MG/ML VIAL IM NR (08:58)
[2024-01-03] MEDS: DEXAMETHASONE 4MG TABLET PO NR (08:59)
[2024-01-03] MEDS ORDERED: LIDO700A15 TP (10:13)
[2024-01-03] MEDS ORDERED: CYCL5TAB MT (10:13)
[2024-01-03] MEDS ORDERED: NAPR-1176 MT (10:13)
[2024-01-03 10:28] VITALS: BP 118/70; PULSE 88; RESP 18; TEMP 36.50292; O2SAT 97
== END 2024-01-03 10:30 | disposition home or self-care (01) ==
LOC: ER 07:08
DX: G89.29 Other chronic pain (principal); M54.50 Low back pain, unspecified; M25.562 Pain in left knee; M25.561 Pain in right knee; J45.909 Unspecified asthma, uncomplicated; I10 Essential (primary) hypertension; Z79.899 Other long term (current) drug therapy
CPT/HCPCS: 99285; 93970; 73562; 96372; J8540; J1885